=== PATIENT | female | born 1980 | race Caucasian/White ===

== ENCOUNTER 2017-11-13 16:05 | Inpatient (IN) | payer OTHER ==
[~2017-11-13] VITALS: Ht 170.2 cm; Wt 65.4 kg
[2017-11-13 16:19] VITALS: BP 129/63; PULSE 124; RESP 16; TEMP 103.3; O2SAT 96
[2017-11-13] MEDS ORDERED: PIPERACIL-TAZO 4.5 GM PREMIX 100 ML IV STA (16:38)
--- NOTE | 2017-11-13 16:44 | PD ---
HPI Chief Complaint: GI Complaint Time Seen by Provider: 16:28 Travel History International Travel<30 days: No Contact w/Intl Traveler<30days: No Traveled to known affect area: No History of Present Illness HPI This 37-year-old female says she has not felt well for a couple of days. She has been having some right flank pain which has not been severe. This morning she was achy all over. She was a bit nauseated. 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 She has developed fever and is vomited. She is not on any medications. She has no allergies. She is feeling weak all over. She had high fever earlier. She has had kidney infections in the past. She says that 12 years ago she had kidney stones while she was . She has not been coughing. She is also having a bad headache which she says started last night. PFSH Past Medical History ?: Not LMP: 4 weeks ago Social History Alcohol Use: No Tobacco Use: No Substance Use: No Allergies-Medications (Allergen,Severity, Reaction): Coded Allergies: No Known Allergies (Unverified , 11/13/17) Reported Meds & Prescriptions Reported Meds & Active Scripts Active No Active Prescriptions or Reported Medications Review of Systems General / Constitutional: Positive: Fever, Chills Eyes: No: Diploplia, Blurred Vision HENT: Positive: Headaches, No: Lightheadedness Cardiovascular: No: Chest Pain or Discomfort, Palpitations Respiratory: No: Cough, Shortness of Breath Gastrointestinal: Positive: Nausea, Vomiting Genitourinary: Positive: Frequency, Flank Pain Skin: No Rash, No Itching Neurologic: Positive: Weakness Psychiatric: No: Anxiety Endocrine: No: Heat Intolerance Hematologic/Lymphatic: No: Easy Bruising Physical Exam Narrative GENERAL: Well-developed female. She is vomiting on arrival and appears quite uncomfortable. Her temp is 103.3 and her pulse rate is 124 SKIN: Focused skin assessment warm/dry. HEAD: Atraumatic. Normocephalic. EYES: Pupils equal and round. No scleral icterus. No injection or drainage. ENT: No nasal bleeding or discharge. Mucous membranes pink and moist. NECK: Trachea midline. No JVD. Neck is supple to flexion CARDIOVASCULAR: Regular rate and rhythm. No murmur appreciated. RESPIRATORY: No accessory muscle use. Clear to auscultation. Breath sounds equal bilaterally. GASTROINTESTINAL: Abdomen soft, non-tender, nondistended. Hepatic and splenic margins not palpable. There is some right CVA tenderness MUSCULOSKELETAL: No obvious deformities. No clubbing. No cyanosis. No edema. NEUROLOGICAL: Awake and alert. No obvious cranial nerve deficits. Motor grossly within normal limits. Normal speech. PSYCHIATRIC: Appropriate mood and affect; insight and judgment normal. Data Data Last Documented VS Vital Signs Date Time Temp Pulse Resp B/P (MAP) Pulse Ox O2 Delivery O2 Flow Rate FiO2 11/13/17 18:05 101.7 98 20 98/49 (65) 97 Orders Orders Sepsis Workup Initiated (11/13/17 ) Complete Blood Count With Diff (11/13/17 16:38) Comprehensive Metabolic Panel (11/13/17 16:38) Lactic Acid Sepsis Protocol (11/13/17 16:38) Urinalysis - C+S If Indicated (11/13/17 16:38) Blood Culture (11/13/17 16:38) Chest, Single Ap (11/13/17 16:38) Blood Glucose (11/13/17 16:38) Ecg Monitoring (11/13/17 16:38) Iv Access Insert/Monitor (11/13/17 16:38) Oximetry (11/13/17 16:38) Oxygen Administration (11/13/17 16:38) Acetaminophen (Tylenol) (11/13/17 16:45) Ondansetron Inj (Zofran Inj) (11/13/17 16:45) Piperacil-Tazo 4.5 Gm Premix (Zosyn 4.5 (11/13/17 16:38) Urine Culture (11/13/17 17:06) Ct Brain W/O Iv Contrast(Rout) (11/13/17 17:30) Ct Abd/Pel W/O Iv Contrast (11/13/17 17:30) Admit Order (Ed Use Only) (11/13/17 18:29) Labs Laboratory Tests Test 11/13/17 17:00 11/13/17 17:06 White Blood Count 8.9 TH/MM3 Red Blood Count 4.51 MIL/MM3 Hemoglobin 13.0 GM/DL Hematocrit 37.9 % Mean Corpuscular Volume 84.0 FL Mean Corpuscular Hemoglobin 28.8 PG Mean Corpuscular Hemoglobin Concent 34.3 % Red Cell Distribution Width 11.9 % Platelet Count 210 TH/MM3 Mean Platelet Volume 10.2 FL Neutrophils (%) (Auto) 91.3 % Lymphocytes (%) (Auto) 5.9 % Monocytes (%) (Auto) 2.3 % Eosinophils (%) (Auto) 0.2 % Basophils (%) (Auto) 0.3 % Neutrophils # (Auto) 8.2 TH/MM3 Lymphocytes # (Auto) 0.5 TH/MM3 Monocytes # (Auto) 0.2 TH/MM3 Eosinophils # (Auto) 0.0 TH/MM3 Basophils # (Auto) 0.0 TH/MM3 CBC Comment DIFF FINAL Differential Comment Blood Urea Nitrogen 17 MG/DL Creatinine 0.90 MG/DL Random Glucose 107 MG/DL Total Protein 7.9 GM/DL Albumin 4.0 GM/DL Calcium Level 8.6 MG/DL Alkaline Phosphatase 61 U/L Aspartate Amino Transf (AST/SGOT) 17 U/L Alanine Aminotransferase (ALT/SGPT) 17 U/L Total Bilirubin 0.6 MG/DL Sodium Level 138 MEQ/L Potassium Level 3.5 MEQ/L Chloride Level 102 MEQ/L Carbon Dioxide Level 26.4 MEQ/L Anion Gap 10 MEQ/L Estimat Glomerular Filtration Rate 70 ML/MIN Lactic Acid Level 1.2 mmol/L Urine Collection Type CLEAN CATCH Urine Color YELLOW Urine Turbidity CLEAR Urine pH 7.5 Urine Specific [place] 1.015 Urine Protein 30 mg/dL Urine Glucose (UA) NEG mg/dL Urine Ketones 15 mg/dL Urine Occult Blood SMALL Urine Nitrite NEG Urine Bilirubin NEG Urine Urobilinogen 0.2 MG/DL Urine Leukocyte Esterase TRACE Urine RBC 4-9 /hpf Urine WBC 25-49 /hpf Urine Squamous Epithelial Cells 6-8 /hpf Urine Bacteria OCC /hpf Microscopic Urinalysis Comment CULTURE INDICATED MDM Medical Decision Making Medical Screen Exam Complete: Yes Emergency Medical Condition: Yes Medical Record Reviewed: Yes Differential Diagnosis Differential includes pyelonephritis, UTI, sepsis Narrative Course Hemoglobin is 13. White count is 8.9. Urinalysis shows 25-[address] head is negative. CT abdomen pelvis shows nonobstructing renal stones, no hydronephrosis. Diagnosis is pyelonephritis. Patient has had a lot of vomiting and pain. She will be admitted for initial initiation of treatment. She has received Zosyn and Tylenol but has ongoing pain and nausea. Diagnosis Primary Impression: Acute pyelonephritis Scripts No Active Prescriptions or Reported Meds Disposition: 01 DISCHARGE HOME Condition: Stable Lloyd Jovel MD November 13, 2017 16:44
[2017-11-13] MEDS ORDERED: ACETAMINOPHEN 325 MG TAB PO ONE (16:45)
[2017-11-13] MEDS ORDERED: ONDANSETRON HCL 4 MG/2 ML VIAL IV PUSH ONE (16:45)
[2017-11-13 16:47] VITALS: O2SAT 95
[2017-11-13 17:17] LABS: AUTOMATED NEUTROPHIL # 8.2 TH/MM3 (1.8-7.7); BASOPHIL % 0.3 % (0.0-2.0); EOSINOPHIL % 0.2 % (0.0-4.0); HEMATOCRIT 37.9 % (35.0-46.0); LYMPH % 5.9 % (9.0-44.0); LYMPHOCYTE # 0.5 TH/MM3 (1.0-4.8); MEAN CORPUSCULAR HEMOGLOBIN 28.8 PG (27.0-34.0); MEAN CORPUSCULAR HGB CONC 34.3 % (32.0-36.0); MEAN PLATELET VOLUME 10.2 FL (7.0-11.0); MONO % 2.3 % (0.0-8.0); MONOCYTE # 0.2 TH/MM3 (0-0.9); NEUT % 91.3 % (16.0-70.0); PLATELET COUNT 210 TH/MM3 (150-450); RED BLOOD COUNT 4.51 MIL/MM3 (4.00-5.30); RED CELL DISTRIBUTION WIDTH 11.9 % (11.6-17.2); WHITE BLOOD COUNT 8.9 TH/MM3 (4.0-11.0)
[2017-11-13 17:20] LABS: BILIRUBIN, URINE NEG (NEG); BLOOD, URINE SMALL (NEG); GLUCOSE,URINE NEG (NEG); KETONE, URINE 15 mg/dL (NEG); NITRITE,URINE NEG (NEG); PH, URINE 7.5 (5.0-8.5); URINE COLOR YELLOW (YELLW/STRAW); URINE LEUKOCYTE ESTERASE TRACE (NEG)
[2017-11-13 17:27] LABS: BACTERIA, URINE OCC /hpf
[2017-11-13 17:27] LABS: CHLORIDE 102 MEQ/L (98-107); SODIUM (NA) 138 MEQ/L (136-145)
--- NOTE | 2017-11-13 17:28 | RADRPT ---
EXAM DATE: 11/13/2017 5:23 PM EDT AGE/SEX: 37 years / Female INDICATIONS: Fever and aches all over. CLINICAL DATA: This is the patient's initial encounter. Patient reports that signs and symptoms have been present for 1 day and indicates a pain score of 4/10. MEDICAL/SURGICAL HISTORY: None. section. COMPARISON: No prior [facility] exams available for comparison. FINDINGS: A single AP view of the chest demonstrates the lungs to be symmetrically aerated without evidence of mass, infiltrate or effusion. The cardiomediastinal contours are unremarkable. Osseous structures a re intact. CONCLUSION: No acute cardiopulmonary disease. Electronically signed by: Teo Reina MD 11/13/2017 5:27 PM EDT
[2017-11-13 17:30] LABS: BICARBONATE 26.4 MEQ/L (21.0-32.0); CALCIUM 8.6 MG/DL (8.5-10.1); GLUCOSE,RANDOM 107 MG/DL (74-106)
[2017-11-13 17:31] LABS: BLOOD UREA NITROGEN 17 MG/DL (7-18)
[2017-11-13 17:33] LABS: ALT (GPT) 17 U/L (10-53); AST (GOT) 17 U/L (15-37)
[2017-11-13 17:34] LABS: GLOMERULAR FILTRATION RATE 70 ML/MIN (>89)
[2017-11-13 17:35] LABS: TOTAL BILIRUBIN ADULT 0.6 MG/DL (0.2-1.0); TOTAL PROTEIN 7.9 GM/DL (6.4-8.2)
[2017-11-13 17:36] LABS: ALKALINE PHOSPHATASE 61 U/L (45-117)
[2017-11-13 18:05] VITALS: BP 98/49; PULSE 98; RESP 20; TEMP 101.7; O2SAT 97
--- NOTE | 2017-11-13 18:10 | RADRPT ---
EXAM DATE: 11/13/2017 5:55 PM EDT AGE/SEX: 37 years / Female INDICATIONS: Cephalgia. CLINICAL DATA: This is the patient's initial encounter. Patient reports that signs and symptoms have been present for 1 day and indicates a pain score of 8/10. MEDICAL/SURGICAL HISTORY: Renal calculi. None. RADIATION DOSE: 48.92 CTDI (mGy) COMPARISON: No prior [facility] exams available for comparison. TECHNIQUE: CT of the head without contrast. Using automated exposure control and adjustment of the mA and/or kV according to patient size, radiation dose was kept as low as reasonably achievable to ob tain optimal diagnostic quality images. FINDINGS: Cerebrum: The ventricles are normal. No midline shift, mass lesion, hemorrhage or acute infarction. No extraaxial fluid collections are seen. Posterior Fossa: The cerebellum and brainstem demonstrate no acute abnormality. The 4th ventricle is midline. The cerebellopontine angle is within normal limits. Extracranial: The visualized sinuses are clear. Skull: The calvaria is intact. No skull fracture. CONCLUSION: No acute intracranial abnormality is identified. Electronically signed by: Chilo Sheffield MD 11/13/2017 6:09 PM EDT
--- NOTE | 2017-11-13 18:20 | RADRPT ---
EXAM DATE: 11/13/2017 6:00 PM EDT AGE/SEX: 37 years / Female INDICATIONS: Right flank pain. Fever and vomiting. CLINICAL DATA: This is the patient's initial encounter. Patient reports that signs and symptoms have been present for 1 day and indicates a pain score of 5/10. MEDICAL/SURGICAL HISTORY: Renal calculi. None. RADIATION DOSE: 5.85 CTDI (mGy) COMPARISON: No prior [facility] exams available for comparison. TECHNIQUE: Multiple contiguous axial images were obtained through the abdomen. Images were obtained using multiple row detector helical technique. Using dose reduction techniques, radiation dose was ke pt as low as reasonably achievable to obtain optimal diagnostic quality images. FINDINGS: Lower chest: No acute abnormality is identified. Hepatobiliary: Liver density is normal. No liver lesion is seen on this noncontrast examination. No c alcified gallstones are present. Kidneys: No hydronephrosis or mass. There is a single nonobstructing stone in the right mid kidney me asuring 11 x 6 mm. There are 3 nonobstructing stones in the left upper and mid collecting system rang ing in size from 3 to 4 mm. No ureteral stones or signs of urinary obstruction are identified. Adrenal Glands: Within normal limits. Spleen: Within normal limits. Pancreas: Within normal limits. Vascular: The aorta is nonaneurysmal. Bowel/Mesentery: The stomach and small bowel demonstrate no abnormality. No acute colon abnormality i s seen. There is no free intraperitoneal air or fluid. Abdominal Wall: No hernia is visualized. Retroperitoneum: No lymphadenopathy. Bladder: No wall thickening or mass. Reproductive: Within normal limits. Inguinal: No lymphadenopathy or hernia. Musculoskeletal: No acute osseous abnormality is identified. CONCLUSION: 1. There are bilateral nonobstructing renal stones with the largest in the right kidney measuring 11 x 6 mm. No ureteral stones or signs of urinary obstruction are present. 2. Remainder of the examination demonstrates no acute finding. Electronically signed by: Chilo Sheffield MD 11/13/2017 6:18 PM EDT
[2017-11-13] MEDS ORDERED: MAGNESIUM HYDROXIDE SUSP 30 ML CUP PO PRN (19:00)
[2017-11-13] MEDS ORDERED: NALOXONE HCL 0.4 MG/ML AMP IV PUSH PRN (19:00)
[2017-11-13] MEDS ORDERED: KETOROLAC TROMETHAMINE 30 MG/ML (IVP) VIAL IV PUSH PRN (19:00)
[2017-11-13] MEDS ORDERED: SODIUM CHLORIDE 0.9% FLUSH 10 ML FLUSH IV FLUSH PRN (19:00)
[2017-11-13] MEDS: SODIUM CHLOR 0.9% 1000 ML INJ 1,000 ML IV SCH (19:36)
[2017-11-13 20:00] VITALS: BP 86/50; PULSE 71; RESP 20; TEMP 97.1; O2SAT 98
[2017-11-13] MEDS: SODIUM CHLORIDE 0.9% FLUSH 10 ML FLUSH IV FLUSH SCH (20:19)
[2017-11-13] MEDS: KETOROLAC TROMETHAMINE 30 MG/ML (IVP) VIAL IV PUSH PRN (20:35)
[2017-11-13] MEDS ORDERED: SODIUM CHLOR 0.9% 1000 ML INJ 1,000 ML IV ONE (22:15)
[2017-11-14] VITALS (7 sets, daily range): BP systolic 89–122; BP diastolic 52–77; PULSE 64–94; RESP 16–20; TEMP 97.4–100.7; O2SAT 98–100
[2017-11-14] MEDS: PIPERACIL-TAZO 3.375 GM PREMIX 50 ML IV SCH ×4 (00:10→23:59)
[2017-11-14] MEDS: SODIUM CHLOR 0.9% 1000 ML INJ 1,000 ML IV SCH ×3 (02:54→23:59)
[2017-11-14] MEDS: KETOROLAC TROMETHAMINE 30 MG/ML (IVP) VIAL IV PUSH PRN (03:19)
[2017-11-14] MEDS: ACETAMINOPHEN 325 MG TAB PO PRN ×3 (03:20→18:10)
[2017-11-14 06:11] LABS: AUTOMATED NEUTROPHIL # 8.3 TH/MM3 (1.8-7.7); BASOPHIL % 0.3 % (0.0-2.0); EOSINOPHIL % 0.4 % (0.0-4.0); HEMATOCRIT 31.8 % (35.0-46.0); HEMOGLOBIN 10.7 GM/DL (11.6-15.3); LYMPH % 8.3 % (9.0-44.0); LYMPHOCYTE # 0.8 TH/MM3 (1.0-4.8); MEAN CELL VOLUME 84.5 FL (80.0-100.0); MEAN CORPUSCULAR HEMOGLOBIN 28.4 PG (27.0-34.0); MEAN CORPUSCULAR HGB CONC 33.6 % (32.0-36.0); MEAN PLATELET VOLUME 10.1 FL (7.0-11.0); MONO % 7.3 % (0.0-8.0); MONOCYTE # 0.7 TH/MM3 (0-0.9); NEUT % 83.7 % (16.0-70.0); PLATELET COUNT 172 TH/MM3 (150-450); RED BLOOD COUNT 3.76 MIL/MM3 (4.00-5.30); WHITE BLOOD COUNT 9.8 TH/MM3 (4.0-11.0)
[2017-11-14 07:07] LABS: ALBUMIN 2.9 GM/DL (3.4-5.0); BICARBONATE 23.9 MEQ/L (21.0-32.0); CALCIUM 7.2 MG/DL (8.5-10.1); CALCIUM-PROTEIN CORRECTED 7.7 MG/DL (8.5-10.1); CREATININE 0.53 MG/DL (0.50-1.00); TOTAL BILIRUBIN ADULT 0.6 MG/DL (0.2-1.0); TOTAL PROTEIN 6.1 GM/DL (6.4-8.2)
[2017-11-14] MEDS: SODIUM CHLORIDE 0.9% FLUSH 10 ML FLUSH IV FLUSH SCH ×2 (09:02→19:27)
--- NOTE | 2017-11-14 09:57 | HHI.HP ---
[facility] Service [facility] Primary Care Physician No Primary Care Physician Admission Diagnosis ACUTE PYELONEPHRITIS Diagnoses: (1) Acute pyelonephritis Chief Complaint: Fevers and chills General malaise Nausea vomiting Travel History International Travel<30 Days: No Contact w/Intl Traveler <30 Da: No Traveled to Known Affected Are: No Sepsis Criteria SIRS Criteria (2 or more): Temp > 100.9 or < 96.8, Heart rate over 90 Sepsis Criteria (SIRS+source): Infect source susp/known Criteria Outcome: Meets sepsis criteria History of Present Illness Written by Marcia Green, acting as scribe for Dr. Bell on 11/14/17 at 09:56. This is a pleasant 37-year-old female patient with a remote history of kidney stones who presented to the ED with complaints of 2 days of subjective fevers, chills, general malaise, nausea and vomiting and mild right flank pain. Patient states that her symptoms started with right-sided dull ache that felt like a "runners cramp" and progressively got worse in the middle the night. Patient characterizes the pain is shooting in nature denies any radiation and worse with movement. Patient does admit to associated nausea and a couple bouts of vomiting. Patient does complain of subjective fever although did not take her temperature at home. Denies any recent dysuria or dark colored urine. She does admit to a remote history of kidney stones 12 years ago while she was , did not require lithotripsy at the time but just passed on its own. Patient denies taking any medicines. Denies any allergies. 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 At the time of assessment pain is well controlled, patient does complain of active chills and shivering as well as a headache overnight. Review of Systems Constitutional: COMPLAINS OF: Fatigue, Fever, Chills, DENIES: Diaphoretic episodes Eyes: DENIES: Diplopia Respiratory: DENIES: Sputum production, Shortness of breath Cardiovascular: DENIES: Chest pain, Palpitations Gastrointestinal: COMPLAINS OF: Abdominal pain (Right quadrant), Nausea, Vomiting, DENIES: Black stools, Bloody stools, Constipation, Diarrhea Musculoskeletal: DENIES: Joint pain Hematologic/lymphatic: DENIES: Bruising Neurologic: COMPLAINS OF: Headache, DENIES: Abnormal gait Psychiatric: COMPLAINS OF: Anxiety Except as stated in HPI: all other systems reviewed are Neg Past Family Social History Past Medical History Remote history of kidney stones. Past Surgical History Denies any prior surgery. Reported Medications Does not take any medicines at home. Allergies: Coded Allergies: No Known Allergies (Unverified , 11/13/17) Active Ordered Medications Current Medications Medications (Trade) Dose Ordered Sig/Joaquín Route Start Time Stop Time Status Last Admin Sodium Chloride 1,000 ml @ 100 mls/hr Q10H IV 11/13/17 18:48 11/13/17 19:36 (NS Flush) 2 ml UNSCH PRN IV FLUSH 11/13/17 19:00 (NS Flush) 2 ml BID IV FLUSH 11/13/17 21:00 (Tylenol) 650 mg Q4H PRN PO 11/13/17 19:00 (Reglan Inj) 5 mg Q6H PRN IV PUSH 11/13/17 19:00 (Tylenol) 650 mg Q6H PRN PO 11/13/17 19:00 11/14/17 03:20 (Toradol Inj) 15 mg Q6H PRN IV PUSH 11/13/17 19:00 11/18/17 18:59 11/14/17 09:01 (Toradol Inj) 30 mg Q6H PRN IV PUSH 11/13/17 19:00 11/18/17 18:59 11/14/17 03:19 (Narcan Inj) 0.4 mg UNSCH PRN IV PUSH 11/13/17 19:00 (Milk Of Magnesia Liq) 30 ml Q12H PRN PO 11/13/17 19:00 Piperacillin Sod/ Tazobactam Sod 50 ml @ 100 mls/hr Q8H IV 11/14/17 01:00 11/14/17 08:58 Family History Denies any significant family medical history. Social History Denies any alcohol, tobacco or illicit drug use. Physical Exam Vital Signs Vital Signs Date Time Temp Pulse Resp B/P (MAP) Pulse Ox O2 Delivery O2 Flow Rate FiO2 11/14/17 08:00 98.2 69 16 95/55 (68) 100 11/14/17 04:00 99.6 94 20 122/77 (92) 99 11/14/17 01:05 89/52 (64) 11/14/17 00:00 97.4 64 20 89/52 (64) 100 11/13/17 20:00 97.1 71 20 86/50 (62) 98 11/13/17 18:05 101.7 98 20 98/49 (65) 97 11/13/17 16:47 95 11/13/17 16:19 103.3 124 16 129/63 (85) 96 Physical Exam GENERAL: Well-developed, well-nourished patient with apparent chills and shivering. Denies any pain. SKIN: Warm and dry. No rash. HEAD: Normocephalic. Atraumatic. EYES: Pupils equal and round. No scleral icterus. No injection or drainage. ENT: No nasal bleeding or discharge. Mucous membranes pink and moist. NECK: Supple. Trachea midline. CARDIOVASCULAR: Regular rate and rhythm. S1, S2 noted. No murmur appreciated. RESPIRATORY: No accessory muscle use. Clear to auscultation. Breath sounds equal bilaterally. GASTROINTESTINAL: Abdomen soft, non-tender, nondistended. Normoactive bowel sounds x4. : No CVA tenderness at this time. MUSCULOSKELETAL: No obvious deformities. Extremities without clubbing, cyanosis , or edema. NEUROLOGICAL: Awake and alert. No obvious cranial nerve deficits. Motor grossly within normal limits. 5/5 muscle strength in bilateral upper and lower extremities. Normal speech. PSYCHIATRIC: Appropriate mood and affect; insight and judgment normal. Laboratory Laboratory Tests Test 11/13/17 17:00 11/13/17 17:06 11/14/17 05:07 White Blood Count 8.9 9.8 Red Blood Count 4.51 3.76 Hemoglobin 13.0 10.7 Hematocrit 37.9 31.8 Mean Corpuscular Volume 84.0 84.5 Mean Corpuscular Hemoglobin 28.8 28.4 Mean Corpuscular Hemoglobin Concent 34.3 33.6 Red Cell Distribution Width 11.9 12.0 Platelet Count 210 172 Mean Platelet Volume 10.2 10.1 Neutrophils (%) (Auto) 91.3 83.7 Lymphocytes (%) (Auto) 5.9 8.3 Monocytes (%) (Auto) 2.3 7.3 Eosinophils (%) (Auto) 0.2 0.4 Basophils (%) (Auto) 0.3 0.3 Neutrophils # (Auto) 8.2 8.3 Lymphocytes # (Auto) 0.5 0.8 Monocytes # (Auto) 0.2 0.7 Eosinophils # (Auto) 0.0 0.0 Basophils # (Auto) 0.0 0.0 CBC Comment DIFF FINAL DIFF FINAL Differential Comment Blood Urea Nitrogen 17 12 Creatinine 0.90 0.53 Random Glucose 107 78 Total Protein 7.9 6.1 Albumin 4.0 2.9 Calcium Level 8.6 7.2 Alkaline Phosphatase 61 46 Aspartate Amino Transf (AST/SGOT) 17 17 Alanine Aminotransferase (ALT/SGPT) 17 20 Total Bilirubin 0.6 0.6 Sodium Level 138 141 Potassium Level 3.5 3.5 Chloride Level 102 109 Carbon Dioxide Level 26.4 23.9 Anion Gap 10 8 Estimat Glomerular Filtration Rate 70 128 Lactic Acid Level 1.2 Urine Collection Type CLEAN CATCH Urine Color YELLOW Urine Turbidity CLEAR Urine pH 7.5 Urine Specific [place] 1.015 Urine Protein 30 Urine Glucose (UA) NEG Urine Ketones 15 Urine Occult Blood SMALL Urine Nitrite NEG Urine Bilirubin NEG Urine Urobilinogen 0.2 Urine Leukocyte Esterase TRACE Urine RBC 4-9 Urine WBC 25-49 Urine Squamous Epithelial Cells 6-8 Urine Bacteria OCC Microscopic Urinalysis Comment CULTURE INDICATED Protein Corrected Calcium 7.7 Date/Time Source Procedure Growth Status 11/13/17 17:00 Blood Peripheral Aerobic Blood Culture Pending Received 11/13/17 17:00 Blood Peripheral Anaerobic Blood Culture Pending Received 11/13/17 17:06 Urine Clean Catch Urine Culture Pending Received Result Diagram: 11/14/17 0507 11/14/17 0507 Imaging Last Impressions Head CT 11/13/17 1730 Signed Impressions: CONCLUSION: No acute intracranial abnormality is identified. Abdomen/Pelvis CT 11/13/17 1730 Signed Impressions: CONCLUSION: 1. There are bilateral nonobstructing renal stones with the largest in the rig ht kidney measuring 11 x 6 mm. No ureteral stones or signs of urinary obstructi on are present. 2. Remainder of the examination demonstrates no acute finding. Chest X-Ray 11/13/17 1638 Signed Impressions: CONCLUSION: No acute cardiopulmonary disease. Septic Shock Reassessment Septic shock perfusion: reassessment completed Caprini VTE Risk Assessment Caprini VTE Risk Assessment: No/Low Risk (score <= 1) Caprini Risk Assessment Model Point Value = 1 Point Value = 2 Point Value = 3 Point Value = 5 Age 41-60 Minor surgery BMI > 25 kg/m2 Swollen legs Varicose veins or History of unexplained or recurrent spontaneous Oral contraceptives or hormone replacement Sepsis (< 1 month) Serious lung disease, including pneumonia (< 1 month) Abnormal pulmonary function Acute myocardial infarction Congestive heart failure (< 1 month) History of inflammatory bowel disease Medical patient at bed rest Age 61-74 Arthroscopic surgery Major open surgery (> 45 min) Laparoscopic surgery (> 45 min) Malignancy Confined to bed (> 72 hours) Immobilizing plaster cast Central venous access Age >= 75 History of VTE Family history of VTE Factor V Leiden Prothrombin [id number] Lupus anticoagulant Anticardiolipin antibodies Elevated serum homocysteine Heparin-induced thrombocytopenia Other congenital or acquired thrombophilia Stroke (< 1 month) Elective arthroplasty Hip, pelvis, or leg fracture Acute spinal cord injury (< 1 month) Prophylaxis Regimen Total Risk Factor Score Risk Level Prophylaxis Regimen 0-1 Low Early ambulation 2 Moderate Order ONE of the following: *Sequential Compression Device (SCD) *Heparin 5000 units SQ BID 3-4 Higher Order ONE of the following medications: *Heparin 5000 units SQ TID *Enoxaparin/Lovenox 40 mg SQ daily (WT < 150 kg, CrCl > 30 mL/min) *Enoxaparin/Lovenox 30 mg SQ daily (WT < 150 kg, CrCl > 10-29 mL/min) *Enoxaparin/Lovenox 30 mg SQ BID (WT < 150 kg, CrCl > 30 mL/min) AND/OR *Sequential Compression Device (SCD) 5 or more Highest Order ONE of the following medications: *Heparin 5000 units SQ TID (Preferred with Epidurals) *Enoxaparin/Lovenox 40 mg SQ daily (WT < 150 kg, CrCl > 30 mL/min) *Enoxaparin/Lovenox 30 mg SQ daily (WT < 150 kg, CrCl > 10-29 mL/min) *Enoxaparin/Lovenox 30 mg SQ BID (WT < 150 kg, CrCl > 30 mL/min) AND *Sequential Compression Device (SCD) Assessment and Plan Problem List: (1) Acute pyelonephritis ICD Code: N10 - Acute pyelonephritis Status: Acute (2) Ureterolithiasis ICD Code: N20.1 - Calculus of ureter (3) Sepsis ICD Code: A41.9 - Sepsis, unspecified organism Assessment and Plan This is a pleasant 37-year-old female patient with a remote history of kidney stones who presented to the ED with complaints of 2 days of subjective fevers, chills, general malaise, nausea and vomiting and mild right flank pain. Patient states that her symptoms started with right-sided dull ache that felt like a "runners cramp" and progressively got worse in the middle the night. Sepsis:Temp > 100.9 or < 96.8, Heart rate over 90; Infect source susp/known Acute pyelonephritis with abnormal UA Bilateral ureterolithiasis - Patient presented with generalized weakness, fever, chills, nausea and vomiting. - Meet sepsis criteria with fever on presentation 103.3, tachycardia and suspected source, urinary tract. No leukocytosis. - UA showing presence of leukocyte esterase and white blood cells. Urine culture pending. Follow cultures. Started on Zosyn. Continue with this time. - Abdominal/pelvis CT showing bilateral nonobstructing renal stones with the largest in the right kidney measuring 11 x 6 mm. No obstruction. - Urology consulted, input and recommendations pending. - Pain control with Toradol IV as needed per pain scale. Pain well controlled at this time. - Ensure hydration, continue IV fluids. Patient status post 1 L NS bolus in ED. - Acetaminophen for fever. Zofran for nausea. - Supportive care. Headache: Head CT showing no acute abnormality. Tylenol available. DVT prophylaxis: SCDs. Evaluation. This note was transcribed by karly Green. I, Dr. Mike Bell personally performed the history, physical exam, and medical decision making; and confirmed the accuracy of the information in the transcribed note. Authenticated by Dr. Mike Bell on 11/14/17 at 09:56. Code Status Full code Discussed Condition With ED physician, patient, Marcia Green Nov 14, 2017 09:56 Mike Bell MD Nov 14, 2017 09:57
[2017-11-14] MEDS: IBUPROFEN 400 MG TAB PO PRN (13:56)
--- NOTE | 2017-11-14 15:11 | PD.CONS ---
HPI Service Urology Consult Requested By Marcia TOUSSAINT Reason for Consult Bilateral stones Primary Care Physician No Primary Care Physician Diagnosis: (1) Acute pyelonephritis ICD Code: N10 - Acute pyelonephritis (2) Ureterolithiasis ICD Code: N20.1 - Calculus of ureter (3) Sepsis ICD Code: A41.9 - Sepsis, unspecified organism History of Present Illness Pt is a 37-year-old female with a history of kidney stones who presented to the ED last night with complaints of 2 days of subjective fevers, chills, general malaise, nausea and vomiting and mild right flank pain. Patient states that her symptoms started with right-sided dull ache that felt like a "runners cramp " and progressively got worse in the middle the night. Patient characterizes the pain is shooting in nature denies any radiation and worse with movement. Patient does admit to associated nausea and a couple bouts of vomiting. Today she feels better, no f/c/n/v, no hematuria. She is on IV fluids and Rocephin. Labs are normal. UC is pending. Her CT scan showed b/l non obstructing stones, the largest one is 11mm at the right kidney. No obstruction. Review of Systems Except as stated in HPI: all other systems reviewed are Neg Past Family Social History Past Medical History h/o kidney stones Past Surgical History none Allergies: Coded Allergies: No Known Allergies (Unverified , 11/13/17) Family History cannot tell Social History none Physical Exam Vital Signs Date Time Temp Pulse Resp B/P (MAP) Pulse Ox O2 Delivery O2 Flow Rate FiO2 11/14/17 12:00 98.7 77 16 108/68 (81) 98 11/14/17 10:01 18 11/14/17 08:00 98.2 69 16 95/55 (68) 100 11/14/17 04:00 99.6 94 20 122/77 (92) 99 11/14/17 01:05 89/52 (64) 11/14/17 00:00 97.4 64 20 89/52 (64) 100 11/13/17 20:00 97.1 71 20 86/50 (62) 98 11/13/17 18:05 101.7 98 20 98/49 (65) 97 11/13/17 16:47 95 11/13/17 16:19 103.3 124 16 129/63 (85) 96 Physical Exam GENERAL: This is a well-nourished, well-developed patient, in no apparent distress. SKIN: No rashes, ecchymoses or lesions. Cool and dry. HEAD: Atraumatic. Normocephalic. . CARDIOVASCULAR: Regular rate and rhythm without murmurs, gallops, or rubs. RESPIRATORY: Clear to auscultation. Breath sounds equal bilaterally. No wheezes , rales, or rhonchi. GASTROINTESTINAL: Abdomen soft, non-tender, nondistended. GENITOURINARY: No CVAT. Bladder is not distended MUSCULOSKELETAL: Extremities without clubbing, cyanosis, or edema. NEUROLOGICAL: Awake and alert. Lab results reviewed: Yes Laboratory Tests Test 11/13/17 17:00 11/13/17 17:06 11/14/17 05:07 White Blood Count 8.9 9.8 Red Blood Count 4.51 3.76 Hemoglobin 13.0 10.7 Hematocrit 37.9 31.8 Mean Corpuscular Volume 84.0 84.5 Mean Corpuscular Hemoglobin 28.8 28.4 Mean Corpuscular Hemoglobin Concent 34.3 33.6 Red Cell Distribution Width 11.9 12.0 Platelet Count 210 172 Mean Platelet Volume 10.2 10.1 Neutrophils (%) (Auto) 91.3 83.7 Lymphocytes (%) (Auto) 5.9 8.3 Monocytes (%) (Auto) 2.3 7.3 Eosinophils (%) (Auto) 0.2 0.4 Basophils (%) (Auto) 0.3 0.3 Neutrophils # (Auto) 8.2 8.3 Lymphocytes # (Auto) 0.5 0.8 Monocytes # (Auto) 0.2 0.7 Eosinophils # (Auto) 0.0 0.0 Basophils # (Auto) 0.0 0.0 CBC Comment DIFF FINAL DIFF FINAL Differential Comment Blood Urea Nitrogen 17 12 Creatinine 0.90 0.53 Random Glucose 107 78 Total Protein 7.9 6.1 Albumin 4.0 2.9 Calcium Level 8.6 7.2 Alkaline Phosphatase 61 46 Aspartate Amino Transf (AST/SGOT) 17 17 Alanine Aminotransferase (ALT/SGPT) 17 20 Total Bilirubin 0.6 0.6 Sodium Level 138 141 Potassium Level 3.5 3.5 Chloride Level 102 109 Carbon Dioxide Level 26.4 23.9 Anion Gap 10 8 Estimat Glomerular Filtration Rate 70 128 Lactic Acid Level 1.2 Urine Collection Type CLEAN CATCH Urine Color YELLOW Urine Turbidity CLEAR Urine pH 7.5 Urine Specific [place] 1.015 Urine Protein 30 Urine Glucose (UA) NEG Urine Ketones 15 Urine Occult Blood SMALL Urine Nitrite NEG Urine Bilirubin NEG Urine Urobilinogen 0.2 Urine Leukocyte Esterase TRACE Urine RBC 4-9 Urine WBC 25-49 Urine Squamous Epithelial Cells 6-8 Urine Bacteria OCC Microscopic Urinalysis Comment CULTURE INDICATED Protein Corrected Calcium 7.7 Date/Time Source Procedure Growth Status 11/13/17 17:00 Blood Peripheral Aerobic Blood Culture - Preliminary NO GROWTH IN 1 DAY Resulted 11/13/17 17:00 Blood Peripheral Anaerobic Blood Culture - Preliminary NO GROWTH IN 1 DAY Resulted 11/13/17 17:06 Urine Clean Catch Urine Culture Pending Received Result Diagram: 11/14/17 0507 11/14/17 0507 Personally reviewed images: Yes Imaging Last Impressions Head CT 11/13/17 1730 Signed Impressions: CONCLUSION: No acute intracranial abnormality is identified. Abdomen/Pelvis CT 11/13/17 1730 Signed Impressions: CONCLUSION: 1. There are bilateral nonobstructing renal stones with the largest in the rig ht kidney measuring 11 x 6 mm. No ureteral stones or signs of urinary obstructi on are present. 2. Remainder of the examination demonstrates no acute finding. Chest X-Ray 11/13/17 1638 Signed Impressions: CONCLUSION: No acute cardiopulmonary disease. Assessment and Plan Assessment and Plan 37y.o F with bilateral non obstructing stones and UTI No acute intervention needed Continue management as per primary team Follow up on final UC results and d/c pt on correct PO antbx based on C&S She will need to f/u with Dr Sharma as an outpt for further management of her stones. Needs to call [phone] to schedule an appointment at [place] or [facility] office Urology remains available as needed Discussed Condition With Dr Zachary LEWIS attending who agrees with this plan Keon Willoughby Nov 14, 2017 15:11
[2017-11-14] MEDS: METOCLOPRAMIDE HCL 10 MG/2 ML VIAL IV PUSH PRN (15:44)
[2017-11-15] VITALS: BP_SYST 114; BP_SYST 123; BP_DIAS 68; PULSE 55; PULSE 99; RESP 18; RESP 20; TEMP 102; TEMP 96.4; O2SAT 100; O2SAT 99
[2017-11-15] MEDS: METOCLOPRAMIDE HCL 10 MG/2 ML VIAL IV PUSH PRN ×2 (02:28→15:39)
[2017-11-15] MEDS: ACETAMINOPHEN 325 MG TAB PO PRN ×2 (03:29→16:21)
[2017-11-15] MEDS: PIPERACIL-TAZO 3.375 GM PREMIX 50 ML IV SCH ×2 (08:46→16:22)
[2017-11-15] MEDS: SODIUM CHLORIDE 0.9% FLUSH 10 ML FLUSH IV FLUSH SCH ×2 (08:47→19:59)
[2017-11-15 09:00] VITALS: BP 106/70; PULSE 55; RESP 16; TEMP 97.5; O2SAT 99
--- NOTE | 2017-11-15 10:08 | HHI.PR ---
Subjective Remarks Follow-up sepsis secondary to UTI. Patient seen and examined, lying in bed comfortably no apparent distress. Patient does state she feels much improved, still with general malaise. Tmax overnight 102. Patient is tolerating p.o. intake no nausea or vomiting. Denies any abdominal pain or dysuria. Awaiting urine culture. Objective Vitals Vital Signs Date Time Temp Pulse Resp B/P (MAP) Pulse Ox O2 Delivery O2 Flow Rate FiO2 11/15/17 00:00 102.0 99 20 123/68 (86) 100 11/14/17 20:00 98.2 76 20 104/64 (77) 99 11/14/17 17:00 100.7 86 18 111/69 (83) 98 11/14/17 12:00 98.7 77 16 108/68 (81) 98 I/O 11/14/17 11/14/17 11/14/17 11/15/17 11/15/17 11/15/17 07:00 15:00 23:00 07:00 15:00 23:00 Intake Total 960 ml 1050 ml 480 ml Balance 960 ml 1050 ml 480 ml Intake Oral 960 ml 480 ml IV Total 1050 ml # Voids 6 2 1 3 # Bowel Movements 0 0 Result Diagram: 11/14/17 0507 11/14/17 0507 Imaging Last Impressions Head CT 11/13/17 1730 Signed Impressions: CONCLUSION: No acute intracranial abnormality is identified. Abdomen/Pelvis CT 11/13/17 1730 Signed Impressions: CONCLUSION: 1. There are bilateral nonobstructing renal stones with the largest in the rig ht kidney measuring 11 x 6 mm. No ureteral stones or signs of urinary obstructi on are present. 2. Remainder of the examination demonstrates no acute finding. Chest X-Ray 11/13/17 8682 Signed Impressions: CONCLUSION: No acute cardiopulmonary disease. Objective Remarks GENERAL: Well-developed, well-nourished patient in [place]. SKIN: Warm and dry. No rash. HEAD: Normocephalic. Atraumatic. EYES: Pupils equal and round. No scleral icterus. No injection or drainage. ENT: No nasal bleeding or discharge. Mucous membranes pink and moist. NECK: Supple. Trachea midline. CARDIOVASCULAR: Regular rate and rhythm. S1, S2 noted. No murmur appreciated. RESPIRATORY: No accessory muscle use. Clear to auscultation. Breath sounds equal bilaterally. GASTROINTESTINAL: Abdomen soft, non-tender, nondistended. Normoactive bowel sounds x4. : No CVA tenderness MUSCULOSKELETAL: No obvious deformities. Extremities without clubbing, cyanosis , or edema. NEUROLOGICAL: Awake and alert. No obvious cranial nerve deficits. Motor grossly within normal limits. 5/5 muscle strength in bilateral upper and lower extremities. Normal speech. PSYCHIATRIC: Appropriate mood and affect; insight and judgment normal. A/P Problem List: (1) Acute pyelonephritis ICD Code: N10 - Acute pyelonephritis Status: Acute (2) Ureterolithiasis ICD Code: N20.1 - Calculus of ureter (3) Sepsis ICD Code: A41.9 - Sepsis, unspecified organism Assessment and Plan This is a pleasant 37-year-old female patient with a remote history of kidney stones who presented to the ED with complaints of 2 days of subjective fevers, chills, general malaise, nausea and vomiting and mild right flank pain. Patient states that her symptoms started with right-sided dull ache that felt like a "runners cramp" and progressively got worse in the middle the night. Sepsis with temp > 100.9 or < 96.8, Heart rate over 90; Infect source susp/known Acute pyelonephritis with UTI Bilateral ureterolithiasis - Patient presented with generalized weakness, fever, chills, nausea and vomiting. - Meet sepsis criteria with fever on presentation 103.3, tachycardia and suspected source, urinary tract. No leukocytosis. Still with fevers overnight. - UA showing presence of leukocyte esterase and white blood cells. Urine culture showing gram negative sharmaine. Follow cultures. Started on Zosyn. Continue with this time. - Abdominal/pelvis CT showing bilateral nonobstructing renal stones with the largest in the right kidney measuring 11 x 6 mm. No obstruction. - Urology consulted, input and recommendations with no surgical intervention at this time. F.u outpatient. - Pain control with Toradol IV as needed per pain scale. Pain well controlled at this time. - Ensure hydration, continue IV fluids. Patient status post 1 L NS bolus in ED. - Acetaminophen for fever. Zofran for nausea. - Supportive care. Headache: Head CT showing no acute abnormality. Tylenol available. DVT prophylaxis: SCDs. Evaluation. Marcia Green Nov 15, 2017 10:08
[2017-11-15] MEDS: SODIUM CHLOR 0.9% 1000 ML INJ 1,000 ML IV SCH ×2 (13:11→14:10)
[2017-11-15 13:31] VITALS: BP 141/85; PULSE 67; RESP 20; TEMP 98.7; O2SAT 100
[2017-11-15] MEDS: IBUPROFEN 400 MG TAB PO PRN (14:09)
[2017-11-15 16:16] VITALS: BP 139/80; PULSE 80; RESP 18; TEMP 101.7; O2SAT 100
[2017-11-15 20:26] VITALS: BP 106/57; PULSE 58; RESP 18; TEMP 97.7; O2SAT 98
[2017-11-15 20:28] VITALS: BP 106/57; PULSE 58; RESP 18; TEMP 97.7; O2SAT 98
[2017-11-16] MEDS: PIPERACIL-TAZO 3.375 GM PREMIX 50 ML IV SCH (00:53)
[2017-11-16] MEDS ORDERED: CEFU1TAB20 PO (07:22)
--- NOTE | 2017-11-16 07:23 | HHI.DS ---
Discharge Summary Admission Date Nov 14, 2017 at 12:39 Discharge Date: Nov 16, 2017 Admitting Diagnosis ACUTE PYELONEPHRITIS (1) Acute pyelonephritis ICD Code: N10 - Acute pyelonephritis Status: Acute (2) Ureterolithiasis ICD Code: N20.1 - Calculus of ureter (3) Sepsis ICD Code: A41.9 - Sepsis, unspecified organism Procedures See below. Brief History - From Admission Written by Marcia Green, acting as scribe for Dr. Bell on 11/14/17 at 09:56. This is a pleasant 37-year-old female patient with a remote history of kidney stones who presented to the ED with complaints of 2 days of subjective fevers, chills, general malaise, nausea and vomiting and mild right flank pain. Patient states that her symptoms started with right-sided dull ache that felt like a "runners cramp" and progressively got worse in the middle the night. Patient characterizes the pain is shooting in nature denies any radiation and worse with movement. Patient does admit to associated nausea and a couple bouts of vomiting. Patient does complain of subjective fever although did not take her temperature at home. Denies any recent dysuria or dark colored urine. She does admit to a remote history of kidney stones 12 years ago while she was , did not require lithotripsy at the time but just passed on its own. Patient denies taking any medicines. Denies any allergies. 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 At the time of assessment pain is well controlled, patient does complain of active chills and shivering as well as a headache overnight. CBC/BMP: 11/14/17 0507 11/14/17 0507 Significant Findings Laboratory Tests Test 11/13/17 17:00 11/13/17 17:06 11/14/17 05:07 Neutrophils (%) (Auto) 91.3 % (16.0-70.0) 83.7 % (16.0-70.0) Lymphocytes (%) (Auto) 5.9 % (9.0-44.0) 8.3 % (9.0-44.0) Neutrophils # (Auto) 8.2 TH/MM3 (1.8-7.7) 8.3 TH/MM3 (1.8-7.7) Lymphocytes # (Auto) 0.5 TH/MM3 (1.0-4.8) 0.8 TH/MM3 (1.0-4.8) Random Glucose 107 MG/DL (74-106) Estimat Glomerular Filtration Rate 70 ML/MIN (>89) Urine Protein 30 mg/dL (NEG-TRACE) Urine Ketones 15 mg/dL (NEG) Urine Occult Blood SMALL (NEG) Urine Leukocyte Esterase TRACE (NEG) Urine RBC 4-9 /hpf (0-3) Urine WBC 25-49 /hpf (0-5) Urine Squamous Epithelial Cells 6-8 /hpf (0-5) Urine Bacteria OCC /hpf (NONE) Red Blood Count 3.76 MIL/MM3 (4.00-5.30) Hemoglobin 10.7 GM/DL (11.6-15.3) Hematocrit 31.8 % (35.0-46.0) Total Protein 6.1 GM/DL (6.4-8.2) Albumin 2.9 GM/DL (3.4-5.0) Calcium Level 7.2 MG/DL (8.5-10.1) Chloride Level 109 MEQ/L (98-107) Protein Corrected Calcium 7.7 MG/DL (8.5-10.1) Imaging Last Impressions Head CT 11/13/171729 Signed Impressions: CONCLUSION: No acute intracranial abnormality is identified. Abdomen/Pelvis CT 11/13/171729 Signed Impressions: CONCLUSION: 1. There are bilateral nonobstructing renal stones with the largest in the rig ht kidney measuring 11 x 6 mm. No ureteral stones or signs of urinary obstructi on are present. 2. Remainder of the examination demonstrates no acute finding. Chest X-Ray 11/13/17 1238 Signed Impressions: CONCLUSION: No acute cardiopulmonary disease. PE at Discharge GENERAL: Well-developed, well-nourished patient in [facility]. SKIN: Warm and dry. No rash. HEAD: Normocephalic. Atraumatic. EYES: Pupils equal and round. No scleral icterus. No injection or drainage. ENT: No nasal bleeding or discharge. Mucous membranes pink and moist. NECK: Supple. Trachea midline. CARDIOVASCULAR: Regular rate and rhythm. S1, S2 noted. No murmur appreciated. RESPIRATORY: No accessory muscle use. Clear to auscultation. Breath sounds equal bilaterally. GASTROINTESTINAL: Abdomen soft, non-tender, nondistended. Normoactive bowel sounds x4. : No CVA tenderness MUSCULOSKELETAL: No obvious deformities. Extremities without clubbing, cyanosis , or edema. NEUROLOGICAL: Awake and alert. No obvious cranial nerve deficits. Motor grossly within normal limits. 5/5 muscle strength in bilateral upper and lower extremities. Normal speech. PSYCHIATRIC: Appropriate mood and affect; insight and judgment normal. Hospital Course This is a pleasant 37-year-old female patient with a remote history of kidney stones who presented to the ED with complaints of 2 days of subjective fevers, chills, general malaise, nausea and vomiting and mild right flank pain. Patient states that her symptoms started with right-sided dull ache that felt like a "runners cramp" and progressively got worse in the middle the night. Met sepsis sepsis with temp > 100.9 or < 96.8, Heart rate over 90; Infect source susp/known- Acute pyelonephritis with UTI and Bilateral ureterolithiasis. Urine culture growing E. coli was given Rocephin IV throughout hospitalization and now sensitive to cefuroxime. Will continue upon discharge abdominal/pelvis CT showing bilateral nonobstructing renal stones with the largest in the right kidney measuring 11 x 6 mm. No obstruction. Urology saw patient, no surgical intervention at this time. Will follow up outpatient. Patient to schedule an appointment. Pain control with Toradol IV during hospitalization. Pain was well controlled. Patient was given IV fluids. Was given acetaminophen for fever. Zofran for nausea. Head CT was done for complaints of worsening headaches. No acute abnormality seen. Patient was stabilized upon discharge. Encouraged follow-up with PCP and urology. Pt Condition on Discharge: Stable Discharge Disposition: Discharge Home Discharge Time: > 30 minutes Discharge Instructions DIET: Follow Instructions for: As Tolerated, No Restrictions Speech Therapy-Diet Recommends: Regular Activities you can perform: Regular-No Restrictions Follow up Referrals: PCP Follow-up - 1 Week Urology - 1 Week with Joel Sharma MD New Medications: Cefuroxime (Cefuroxime) 500 Mg Tab 500 MG PO BID for Infection for 8 Days, #16 TAB 0 Refills Norma,Marcia ADOBE LAYER Nov 16, 2017 07:23
--- NOTE | 2017-11-16 07:24 | HHI.DCPOC ---
Discharge Care Plan Diagnosis: (1) Ureterolithiasis (2) Acute pyelonephritis (3) Sepsis Additional Problems Please call [phone] to schedule an appointment with Dr. Sharma, urology, at [place] or [facility] Goals to Promote Your Health * To prevent worsening of your condition and complications * To maintain your health at the optimal level Directions to Meet Your Goals Take your medications as prescribed Follow your dietary instruction Follow activity as directed Keep your appointments as scheduled Take your immunizations and boosters as scheduled If your symptoms worsen call your PCP, if no PCP go to Urgent Care Center or Emergency Room Smoking is Dangerous to Your Health. Avoid second hand smoke Call the 24-hour hour crisis hotline for domestic abuse at Marcia Green Nov 16, 2017 07:24
[2017-11-16] MEDS ORDERED: DIFL150T PO (07:53)
[2017-11-16] MEDS ORDERED: FLUCONAZOLE 100 MG TAB PO ONE (08:00)
== END 2017-11-16 09:36 | disposition home or self-care (01) | DRG 872 ==
LOC: PHED 16:05 → PHEDA 18:30 → PH3A 19:38 → OBSVTOIN 11-14 12:39
PROVIDERS: ADMIT Hospitalist; ATTEND Hospitalist
DX: A41.9 Sepsis, unspecified organism (principal); N20.1 Calculus of ureter; N10 Acute pyelonephritis; N39.0 Urinary tract infection, site not specified; B96.20 Unspecified Escherichia coli [E. coli] as the cause of diseases classified elsewhere
CPT/HCPCS: 70450; 71045; 74176; 80053; 81001; 83605; 85025; 87040; 87077; 87086; 87186; J1885; J2405; J2543; J2765; J7030